=== PATIENT | female | born 1945 | race Caucasian/White ===

== ENCOUNTER 2016-05-27 07:13 | Outpatient (CLI) | payer MEDICARE, OTHER ==
[~2016-05-27] VITALS: Ht 170.2 cm; Wt 49.9 kg
--- NOTE | ~2016-05-27 | HEMODYNAMI ---
PATIENT:REYNALDO NICOLE MEDICAL RECORD: [id number] : 49 LOCATION:[facility] [id number] ADMISSION DATE: 05/27/16 Generatedon:05/28/20169:23 Patient name: REYNALDO NICOLE Patient #: [id number] SSN: DO B: 1945 Date of study: 05/28/2016 Page: Of Hemodynamic Procedure Report Patient Data Patient Demographics Procedure consent was obtained First Name: REYNALDO Gender: Female Last Name: BONNIE : 1945 Patient #: [id number] Age: 70 year(s) Race: Additional ID: [id number] Contact [facility] State: [place] City: [facility] Zip code: [address] Past Medical History History of disease Date Diagnosis Comments Chronic lung disease->COPD Allergies Allergen Reaction Date Comments Reported Penicillins 05/27/2016 Admission Admission Data Admission Date: 05/27/2016 Admission Time: 7:13 Room #: [id number] Height (in.): 67 BSA: 1.57 (m2) Height (cm.): 170.18 BMI: 17.23 (kg/m2) Weight (lbs.): 110 Weight (kg.): 49.9 Current Diagnosis Diagnosis Description Stable angina Lab Results Lab Result Date: 05/27/2016 Lab Result Time: 0:00 Biochemistry Name Units Result Min Max BUN mg/dl 16 --(---*)-- 7 18 Creatinine mg/dl 0.8 --(-*--)-- 0.6 1.3 CBC Name Units Result Min Max Hemoglobin g/dl 11.6 *-(----)-- 13.5 17.5 Procedure Procedure Types Cath Procedure PCI Procedure Coronary Stent Initial Miscellaneous Procedures Moderate Sedation up to 15 minutes Procedure Description Procedure Date Procedure Date: 05/28/2016 Procedure Start Time: 9:14 Procedure End Time: 9:22 Procedure Staff Name Function Filipe Jenkins MD Performing Physician Dom Marsh RT Scrub Amy Ureña RN Nurse Slim Turner RT Monitor Procedure Data Cath Procedure Fluoroscopy Diagnostic fluoroscopy Total fluoroscopy Time: 1.4 time: 1.4 min min Diagnostic fluoroscopy Total fluoroscopy dose: 82 dose: 82 mGy mGy Contrast Material Contrast Material Type Amount (ml) Isovue 300 41 Entry Location Entry Primary Successful Side Size Upsize Upsize Entry Closure Succes sful Closure Location (Fr) 1 (Fr) 2 (Fr) Remarks Device Remarks Femoral Right 6 Fr Exoseal artery Short Estimated blood loss: 10 ml Procedure Complications No complications Procedure Medications Medication Administration Route Dosage Oxygen NC 2 l/min Heparin Flush Bag added to field 2 bags (1000units/500ml NS) Lidocaine 2% added to field 20 Versed I.V. 1 mg Fentanyl I.V. 50 mcg Heparin Bolus I.V. 4000 units Versed I.V. 0.5 mg Hemodynamics Rest BSA: 1.57 (m2) HGB: 11.6 (g/dl) O2 Consumption: Estimated: 159.45 (ml/min) O2 Co nsumption indexed: Estimated:101.56 (ml/min/m) Heart Rate: 94 (bpm) Snapshots Pre Cath Intra NCS Post Cath Vital Signs Time Heart Resp SPO2 etCO2 YL5ogyp NIBP (mmHg) Rhythm Pain Sedation Rate (ipm) (%) (mmHg) (mmHg) Status Level (bpm) 8:49:07 97 16 96 0 0 165/98(136) NSR 0 (11) 10(A) , No pain 8:53:19 93 16 98 0 0 166/103(140) NSR 0 (11) 10(A) , No pain 8:57:29 91 18 98 0 0 165/102(134) NSR 0 (11) 10(A) , No pain 9:01:43 89 16 98 0 0 159/91(131) NSR 0 (11) 10(A) , No pain 9:05:55 87 20 97 0 0 147/86(117) NSR 0 (11) 10(A) , No pain 9:10:07 86 20 97 0 0 139/80(105) NSR 0 (11) 10(A) , No pain 9:14:17 86 23 97 0 0 141/78(106) NSR 0 (11) 9(A) , No pain 9:18:29 84 20 18 0 0 127/74(100) NSR 0 (11) 9(A) , No pain 9:20:36 86 16 95 0 0 134/78(110) NSR 0 (11) 9(A) , No pain Medications Time Medication Route Dose Verified Delivered Reason Notes Effectiveness by by 9:02:58 Oxygen NC 2 Filipe Amy Per physician l/min Alice Ureña RN 9:03:07 Heparin Flush added 2 Filipe Filipe used for Bag to bags Alice Jenkins MD procedure (1000units/500ml field NS) 9:03:16 Lidocaine 2% added 20ml Filipe Filipe used for to vial Alice Jenkins MD procedure field 9:12:05 Versed I.V. 1 mg Filipe Amy for sedation Alice Ureña RN 9:12:11 Fentanyl I.V. 50 Filipe Amy for sedation mcg Alice Ureña RN 9:14:21 Versed I.V. 0.5 Filipe Amy for sedation mg Alice Ureña RN 9:15:45 Heparin Bolus I.V. 4000 Filipe Amy for dose units Alice Ureña RN anticoagulation verified with dr jenkins Procedure Log Time Note 8:30:20 Slim Turner RT(R) sent for patient. Start room use. 8:36:11 Patient Height : 67 cm 8:36:11 Patient Weight : 110 kg 8:44:35 Time tracking: Regular hours 8:44:41 Plan of Care:Hemodynamics will remain stable., Cardiac rhythm will remain stable., Comfort level will be maintained., Respiratory function will remain adequate., Patient/ family verbilizes understanding of procedure., Procedure tolerated without complication., Recovers from procedure without complications.. 8:44:48 Patient received from PCU to CCL 1 Alert and oriented. Tansferred to table in Supine position. 8:44:50 Warm blankets applied, and elissa hugger turned on for patient comfort. 8:44:51 Correct patient and procedure confirmed by team. 8:44:52 Signed procedure consent form obtained from patient. 8:44:53 ECG and BP/O2 sat monitors applied to patient. 8:48:05 Vital chart was started 8:50:44 Baseline sample Acquired. 8:50:53 Rhythm: sinus rhythm 8:50:56 Full Disclosure recording started 8:51:03 H&P Date Dictated: 05/27/2016 Within 30 days and on chart., H&P Addendum completed by physician on day of procedure. (MUST COMPLETE FOR ALL OUTPATIENTS). 8:51:03 Pre-procedure instructions explained to patient. 8:51:04 Pre-op teaching completed and patient verbalized understanding. 8:51:05 Family in waiting room. 8:51:06 Patient NPO since Midnight. 8:57:57 Is the patient allergic to Iodine/contrast media? No. 8:57:59 Is patient on blood thinner?Yes 8:58:04 ACC The patient was administered the following blood thiners within the last 24 hours: ACCPlavix 8:58:07 Patient diabetic? No. 8:58:12 Patient not . Patient is over age 55. 8:58:16 Previous problem with sedation/anesthesia? No ? 8:58:17 Snore? No 8:58:18 Sleep apnea? No 8:58:19 Deviated septum? No 8:58:20 Opens mouth fully? Yes 8:58:21 Sticks out tongue? Yes 8:58:24 Airway obstruction? Yes COPD 8:58:30 Dentures? Yes IN 8:58:39 Pre procedure: right dorsailis pedis pulse 1+ Palpable, but thready & weak; easily obliterated 8:58:41 Patient pain scale 0/10 ?. 8:59:00 IV right forearm D/C'd due to infiltration. 8:59:14 IV started by Amy Ureña RN inleft hand with a 22 gauge IV catheter with 0.9% NaCl at KVO. 8:59:16 Lab results completed and on chart. 8:59:21 Right groin area was prepped with chlora-prep and draped in sterile fashion 8:59:23 Alarms reviewed by R. N. 8:59:23 Sharps counted by scrub and verified by R.N. 8:59:30 Use device set Femoral PCI 8:59:32 Acist Manifold opened to sterile field. 8:59:32 Tegaderm 4 x 4 opened to sterile field. 8:59:34 Acist Syringe opened to sterile field. 8:59:34 Acist Hand Control opened to sterile field. 8:59:34 Bag Decanter opened to sterile field. 8:59:35 Medline Cath Pack opened to sterile field. 8:59:35 Terumo 6Fr Mesa Sheath opened to sterile field. 8:59:36 St Cecil 260cm J .035 wire opened to sterile field. 8:59:36 Merit BasixCompak Inflation Kit opened to sterile field. 8:59:51 Aggarwal Whisper J 300cm 0.014 guide wire opened to sterile field. 8:59:54 22g IV Catheter opened to sterile field. 9:00:09 IV Extension Set opened to sterile field. 9:02:19 Physician paged 9:02:58 Oxygen 2 l/min NC was administered by Amy Ureña RN; Per physician; 9:03:07 Heparin Flush Bag (1000units/500ml NS) 2 bags added to field was administered by Filipe Jenkins MD; used for procedure; 9:03:16 Lidocaine 2% 20ml vial added to field was administered by Filipe Jenkins MD; used for procedure; 9:07:49 Zero performed for pressure channel P1 9:09:17 ACC PCI Site: mLAD has 70% stenosis. 9:09:21 ACC Pre-intervention YASHIRA Flow is 3. 9:11:41 --------ALL STOP TIME OUT------ 9:11:42 Final Timeout: patient, procedure, and site verified with staff and physician. All members of the team are in agreement. 9:11:45 Right groin site verified by team. 9:11:48 Physical assessment completed. ASA score P 2 - A patient with mild systemic disease as per Filipe Jenkins MD. 9:11:52 Sedation plan: IV Moderate Sedation Versed, Fentanyl 9:12:05 Versed 1 mg I.V. was administered by Amy Ureña RN; for sedation; 9:12:11 Fentanyl 50 mcg I.V. was administered by Amy Ureña RN; for sedation; 9:12:41 Cordis 6FR XBLAD 3.5 guide catheter opened to sterile field. 9:13:59 Procedure started. 9:14:02 Local anesthetic to right femoral artery with Lidocaine 2% by Filipe Jenkins MD.INITIAL ACCESS ONLY 9:14:21 Versed 0.5 mg I.V. was administered by Amy Ureña RN; for sedation; 9:14:42 A 6 Fr Short sheath was inserted into the Right Femoral artery 9:14:59 6 Fr XBLAD 3.5 guide catheter was inserted over the wire 9:15:45 Heparin Bolus 4000 units I.V. was administered by Amy Ureña RN; for anticoagulation; dose verified with dr jenkins 9:16:15 Whisper wire advanced. 9:16:29 Wire advanced across lesion. 9:17:48 Inflation Number: 1 A MilePointtronic Integrity 4.0 X 15 stent was prepped and advanced across the Mid LAD. The stent was deployed at 11 ROGELIO for 0:10 (min:sec). 9:18:39 ACC Post-intervention YASHIRA Flow is 3. 9:18:40 Stent catheter was removed intact over wire. 9:18:41 Wire removed. 9:18:42 Guide catheter removed. 9:19:24 Cordis 6Fr Exoseal opened to sterile field. 9:19:34 Sheath removed intact; hemostasis achieved with Exoseal to the Right Femoral artery. 9:19:37 Procedure ended.(Physican Out) 9:19:48 Fluoroscopy time 01.40 minutes. 9:19:52 Fluoroscopy dose: 82 mGy 9:19:52 Flurop Dose total: 82 9:19:57 Contrast amount:Isovue 300 41ml. 9:19:59 Sharps counted by scrub and verified by R.N. 9:21:38 Insertion/operative site no bleeding no hematoma. 9:21:42 Post-op/insertion site Right Femoral artery dressed using a 4 x 4 and Tegaderm. 9:21:43 Post Procedure Pulses reassessed and unchanged 9:21:47 Post-procedure physical assessment completed. ASA score P 2 - A patient with mild systemic disease as per Filipe Jenkins MD. 9:21:50 Post procedure rhythm: unchanged. 9:21:55 Estimated blood loss: 10 ml 9:21:58 Post procedure instruction explained to patient.Patient verbalizes understanding. 9:21:58 Patient needs reinforcement of post procedure teaching. 9:22:05 Procedure type changed to Cath procedure, PCI procedure, Coronary Stent Initial, Miscellaneous Procedures, Moderate Sedation up to 15 minutes 9:22:09 Procedure and supply charges have been captured, reviewed, submitted and are correct. 9:22:13 Procedure Complication : No complications 9:22:40 Vital chart was stopped 9:22:41 See physician's report for complete and final results. 9:22:43 Report given to PCU. 9:22:49 Patient transfered to PCU with Bed. 9:22:51 Procedure ended. 9:22:51 Full Disclosure recording stopped 9:22:55 End room use (Document Last) Intervention Summary Intervention Notes Time ActionType Lesion and Equipment Action# Pressure Duration Attributes Used 9:17:48 Place stent Mid LAD Medtronic 1 11 00:10 Integrity 4.0 X 15 stent Device Usage Item Name Manufacture Quantity Catalog Hospital Part Current Minimal Lot# / Number Charge Number Stock Stock Serial# Code Acist Acist 1 [id number] [id number] 527156 [id number] 5 Manifold Medical Systems Inc Tegaderm 4 3M 1 [id number] 480497 735545 890347 5 x 4 Acist Acist 1 01218 746635 028019 321235 20 Syringe Medical Systems Seismotech Acist Hand Acist 1 35915 541102 412161 333895 5 Control Medical Systems Inc Bag Microtek 1 2002S 330311 72469 562634 5 DecCentrify Medical Inc. Medline Cardinal 1 [id number] 428932 31730 514482 5 Cath Pack Health Terumo 6Fr Terumo 1 [id number] 502675 383286 324251 [address] [facility] 1 086318 532943 095305 277620 30 260cm J .035 wire Merit Merit 1 [id number] 263260 055974 370119 15 BasixCompak Medical Inflation Kit Aggarwal Aggarwal 1 [id number] 398799 322335 592297 5 Whisper J Vascular 300cm 0.014 guide wire 22g IV B. Mejia 1 [id number] 115836 034783 405777 5 Catheter IV Hospira 1 57933-42 736777 24894 886557 5 Extension Set Cordis 6FR Cardinal 1 [id number] 406354 584547 090847 10 XBLAD 3.5 Health guide catheter Medtronic Medtronic 1 [id number] 941281 868891 3 [id number] Integrity 4.0 X 15 stent Cordis 6Fr Cardinal 1 EX600 078885 270221 704991 10 RFinity Signature Audit Stephenson Stage Time Signature Unsigned Intra-Procedure 05/28/2016 Slim Turner 9:23:15 AM RT(R) Signatures Monitor : Slim Turner RT Signature : Date : Time : [address] [id number] [place] [address]
--- NOTE | ~2016-05-27 | HEMODYNAMI ---
PATIENT:REYNALDO NICOLE MEDICAL RECORD: [id number] : 49 LOCATION:[facility] ADMISSION DATE: 05/27/16 Generatedon:05/27/201610:15 Patient name: REYNALDO NICOLE Patient #: [id number] SSN: B: 1945 Date of study: 05/27/2016 Page: Of Hemodynamic Procedure Report Patient Data Patient Demographics Procedure consent was obtained First Name: REYNALDO Gender: Female Last Name: BONNIE : 1945 Patient #: [id number] Age: 70 year(s) Race: Additional ID: [id number] Contact details Address: [address] [place] [address] State: [place] City: [facility] Zip code[place] [address] Past Medical History History of disease Date Diagnosis Comments Chronic lung disease->COPD Allergies Allergen Reaction Date Comments Reported Penicillins 05/27/2016 Admission Admission Data Admission Date: 05/27/2016 Admission Time: 7:13 Height (in.): 67 BSA: 1.57 (m2) Height (cm.): 170.18 BMI: 17.23 (kg/m2) Weight (lbs.): 110 Weight (kg.): 49.9 Current Diagnosis Diagnosis Description Stable angina Lab Results Lab Result Date: 05/27/2016 Lab Result Time: 0:00 Biochemistry Name Units Result Min Max BUN mg/dl 16 --(---*)-- 7 18 Creatinine mg/dl 0.8 --(-*--)-- 0.6 1.3 CBC Name Units Result Min Max Hemoglobin g/dl 11.6 *-(----)-- 13.5 17.5 Procedure Procedure Types Cath Procedure Diagnostic Procedure [facility] w/Coronaries FFR/IVUS Intra-Coronary IVUS Initial PCI Procedure Coronary Stent Initial Miscellaneous Procedures Moderate Sedation up to 30 minutes Procedure Description Procedure Date Procedure Date: 05/27/2016 Procedure Start Time: 9:54 Procedure End Time: 10:14 Procedure Staff Name Function Filipe Jenkins MD Performing Physician Slim ULLOA Scrub Amy Ureña RN Nurse Dom Marsh RT Monitor Procedure Data Cath Procedure Fluoroscopy Diagnostic fluoroscopy Total fluoroscopy Time: 5.6 time: 5.6 min min Diagnostic fluoroscopy Total fluoroscopy dose: 303 dose: 303 mGy mGy Contrast Material Contrast Material Type Amount (ml) Isovue 300 105 Entry Location Entry Primary Successful Side Size Upsize Upsize Entry Closure Hilliard ccessful Closure Location (Fr) 1 (Fr) 2 (Fr) Remarks Device Remarks Radial Right 6 Fr Mechanical artery Short Compression Procedure Complications No complications Procedure Medications Medication Administration Route Dosage Oxygen NC 3 l/min Heparin Flush Bag added to field 2 bags (1000units/500ml NS) Lidocaine 2% added to field 20 Radial Cocktail added to field 1 syringe (Verapomil 2mg/Nitro 400mcg/Heparin 1500units) Versed I.V. 0.5 mg Fentanyl I.V. 25 mcg Oxygen 6 l/min Lopressor I.V. 5 mg Versed I.V. 0.5 mg Fentanyl I.V. 25 mcg Radial Cocktail I.A. 1 syringe (Verapomil 2mg/Nitro 400mcg/Heparin 1500units) Heparin Bolus I.V. 4000 units Lopressor I.V. 5 mg Oxygen NC 4 l/min Hemodynamics Rest BSA: 1.57 (m2) HGB: 11.6 (g/dl) O2 Consumption: Estimated: 197.51 (ml/min) O2 Co nsumption indexed: Estimated:125.8 (ml/min/m) Heart Rate: 158 (bpm) Snapshots Pre Cath Intra NCS Post Cath Vital Signs Time Heart Resp SPO2 etCO2 HB0nxio NIBP (mmHg) Rhythm Pain Sedatio n Rate (ipm) (%) (mmHg) (mmHg) Status Level (bpm) 9:39:11 109 24 95 0 0 204/190(194) ST 0 (11) 10(A) , No pain 9:44:10 115 30 [address] 0 (11) 10(A) , No pain 9:44:16 114 30 94 0 0 186/130(147) ST 0 (11) 10(A) , No pain 9:49:15 114 33 [address] 0 (11) 10(A) , No pain 9:50:39 118 [address] 0 (11) 10(A) Exceeded , No pain 9:52:11 115 43 88 0 0 182/163(172) ST 0 (11) 10(A) , No pain 9:57:10 152 35 [address] 0 (11) 10(A) , No pain 9:57:45 116 30 95 0 0 197/159(165) ST 0 (11) 10(A) , No pain 10:02:01 84 20 98 0 0 137/85(108) ST 0 (11) 10(A) , No pain 10:06:09 80 20 98 0 0 133/81(106) ST 0 (11) 10(A) , No pain 10:10:17 75 20 99 0 0 125/78(102) ST 0 (11) 10(A) , No pain 10:13:27 76 24 97 0 0 128/77(108) ST 0 (11) 10(A) , No pain Medications Time Medication Route Dose Verified Delivered Reason Note s Effectiveness by by 9:40:33 Oxygen NC 3 l/min Filipe Amy Per physician pt a rrived to Alice Ureña RN phlebotomist lab assistant with noted increase work of breathing, increased respiration rate, and anxiety. pt was placed in upright position (semi fowlers) on phlebotomist lab assistant table and oxygen applied. pt educated to breath slow deep breaths through her nose. pt remains anxious. 9:41:59 Heparin Flush added 2 bags Filipe Dent used for Bag to Alice Jenkins MD procedure (1000units/500ml field NS) 9:42:10 Lidocaine 2% added 20ml Filipecamelia Dent used for to vial Alice Jenkins MD procedure field 9:42:22 Radial Cocktail added 1 Filipe Filipe used for (Verapomil to syringe Alice Jenkins MD procedure 2mg/Nitro field 400mcg/Heparin 1500units) 9:48:17 Oxygen simple 6 l/min Filipe Amy Per physician pt c ontinues mask Alice Ureña RN to have same respiratory symptoms 9:49:02 Versed I.V. 0.5 mg Filipe Amy for sedation Alice Ureña RN 9:49:08 Fentanyl I.V. 25 mcg Filipe Amy for sedation Alice Ureña RN 9:54:05 Fentanyl I.V. 25 mcg Filipe Amy for sedation Alice Ureña RN 9:54:54 Versed I.V. 0.5 mg Filipe Amy for sedation Alice Ureña RN 9:56:00 Radial Cocktail I.A. 1 Filipe Dent for (Verapomil syringe Alice Jenkins MD vasodilation 2mg/Nitro 400mcg/Heparin 1500units) 9:57:40 Lopressor I.V. 5 mg Filipe Ricoecca Per physician Alice Ureña RN 10:00:26 Heparin Bolus I.V. 4000 Filipe Amy for dose verified units Alice Ureña RN anticoagulation with dr jenkins 10:05:00 Lopressor I.V. 5 mg Filipe Espinozaca Per physician Alice Ureña RN 10:10:59 Oxygen NC 4 l/min Filipe Espinozaca Per physician pt h as Alice Ureña RN decreased work of breathing and decresed anxiety. pt hr is 76, bp is normotensive. pt reports feeling that she can catch her breath. Procedure Log Time Note 9:15:07 Dom Marsh RT(R) sent for patient. Start room use. 9:21:02 ACC Patient presents with Stable Angina CCS Anginal Class 2--Slight limitation of ordinary activity. 9:21:04 Diagnostic Cath status Elective 9:21:08 Time tracking: Regular hours 9:21:13 Plan of Care:Hemodynamics will remain stable., Cardiac rhythm will remain stable., Comfort level will be maintained., Respiratory function will remain adequate., Patient/ family verbilizes understanding of procedure., Procedure tolerated without complication., Recovers from procedure without complications.. 9:21:37 Patient allergic to Penicillins 9:32:06 Patient received from Pre/Post Procedure Room to CCL 1 Alert and oriented. Tansferred to table in Supine position. 9:32:07 Warm blankets applied, and elissa hugger turned on for patient comfort. 9:32:08 Correct patient and procedure confirmed by team. 9:32:09 Signed procedure consent form obtained from patient. 9:32:10 ECG and BP/O2 sat monitors applied to patient. 9:37:15 Vital chart was started 9:40:33 Oxygen 3 l/min NC was administered by Amy Ureña RN; Per physician; pt arrived to phlebotomist lab assistant with noted increase work of breathing, increased respiration rate, and anxiety. pt was placed in upright position (semi fowlers) on phlebotomist lab assistant table and oxygen applied. pt educated to breath slow deep breaths through her nose. pt remains anxious. 9:41:59 Heparin Flush Bag (1000units/500ml NS) 2 bags added to field was administered by Filipe Jenkins MD; used for procedure; 9:42:10 Lidocaine 2% 20ml vial added to field was administered by Filipe Jenkins MD; used for procedure; 9:42:22 Radial Cocktail (Verapomil 2mg/Nitro 400mcg/Heparin 1500units) 1 syringe added to field was administered by Filipe Jeknins MD; used for procedure; 9:45:17 Baseline sample Acquired. 9:45:23 Rhythm: sinus rhythm 9:45:25 Full Disclosure recording started 9:45:37 H&P Date Dictated: 05/07/2016 Within 30 days and on chart., H&P Addendum completed by physician on day of procedure. (MUST COMPLETE FOR ALL OUTPATIENTS). 9:45:38 Pre-procedure instructions explained to patient. 9:45:39 Pre-op teaching completed and patient verbalized understanding. 9:45:41 Family in waiting room. 9:45:43 Patient NPO since Midnight. 9:45:49 Is the patient allergic to Iodine/contrast media? No. 9:45:51 Is patient on blood thinner?Yes 9:45:54 ACC The patient was administered the following blood thiners within the last 24 hours: ACCPlavix 9:45:56 Patient diabetic? No. 9:45:58 ----Pre-sedation anethsthesia assessment.---- 9:46:00 Previous problem with sedation/anesthesia? No ? 9:46:02 Snore? No 9:46:04 Sleep apnea? No 9:46:06 Deviated septum? No 9:46:07 Opens mouth fully? Yes 9:46:09 Sticks out tongue? Yes 9:46:14 Airway obstruction? Yes COPD 9:46:19 Dentures? Yes IN TIGHT 9:46:23 Pre procedure: right dorsailis pedis pulse 1+ Palpable, but thready & weak; easily obliterated 9:46:27 Modified Ion's test Ulnar < 7 seconds 9:46:32 Patient pain scale 0/10 ?. 9:46:37 IV patent on arrival in right forearm with 0.9% NaCl at 10ml/hr. 9:46:56 Lab Result : BUN 16 mg/dl 9:46:56 Lab Result : Creatinine 0.8 mg/dl 9:46:56 Lab Result : Hemoglobin 11.6 g/dl 9:46:59 Lab results completed and on chart. 9:47:02 Right Radial & Right Groin area was prepped with chlora-prep and draped in sterile fashion 9:47:03 Alarms reviewed by R. N. 9:47:03 Sharps counted by scrub and verified by R.N. 9:47:04 --------ALL STOP TIME OUT------ 9:47:04 Final Timeout: patient, procedure, and site verified with staff and physician. All members of the team are in agreement. 9:47:06 Right Radial & Right Groin site verified by team. 9:47:09 Physical assessment completed. ASA score P 2 - A patient with mild systemic disease as per Filipe Jenkins MD. 9:47:13 Sedation plan: IV Moderate Sedation Versed, Fentanyl 9:47:25 Use device set Radial Dx 9:47:26 Acist Syringe opened to sterile field. 9:47:26 Medline Cath Pack opened to sterile field. 9:47:27 Bag Decanter opened to sterile field. 9:47:27 Terumo 6Fr Slender Glidesheath opened to sterile field. 9:47:27 St Cecil 260cm J .035 wire opened to sterile field. 9:47:28 Acist Hand Control opened to sterile field. 9:47:28 Acist Manifold opened to sterile field. 9:47:29 Tegaderm 4 x 4 opened to sterile field. 9:47:29 MBrace Wrist Support opened to sterile field. 9:47:56 Patient Height : 67 cm 9:48:00 Patient Weight : 110 kg 9:48:04 Current Diagnosis : Stable angina 9:48:17 Oxygen 6 l/min simple mask was administered by Amy Ureña RN; Per physician; pt continues to have same respiratory symptoms 9:49:02 Versed 0.5 mg I.V. was administered by Amy Ureña RN; for sedation; 9:49:08 Fentanyl 25 mcg I.V. was administered by Amy Ureña RN; for sedation; 9:54:05 Fentanyl 25 mcg I.V. was administered by Amy Ureña RN; for sedation; 9:54:37 Procedure started. 9:54:49 Local anesthetic to right radial artery with Lidocaine 2% by Filipe Jenkins MD.INITIAL ACCESS ONLY 9:54:54 Versed 0.5 mg I.V. was administered by Amy Ureña RN; for sedation; 9:55:23 A 6 Fr Short sheath was inserted into the Right Radial artery 9:56:00 Radial Cocktail (Verapomil 2mg/Nitro 400mcg/Heparin 1500units) 1 syringe I.A. was administered by Filipe Jenkins MD; for vasodilation; 9:56:43 LV angiography performed. 9:56:45 LV gram done using FORREST 9:56:49 Injector settings: Ml/sec: 7, Volume: 15, 9:57:19 EF : 50 % 9:57:28 LCA angiography performed. 9:57:40 Lopressor 5 mg I.V. was administered by Amy Ureña RN; Per physician; 9:58:38 RCA angiography performed. 9:58:41 Catheter removed. 9:59:05 Terumo 6Fr Franklin Sheath opened to sterile field. 9:59:06 Campbell Akutan Eagleye IVUS Catheter opened to sterile field. 9:59:06 Aggarwal Whisper J 300cm 0.014 guide wire opened to sterile field. 9:59:06 Cordis 6FR XBLAD 3.5 guide catheter opened to sterile field. 9:59:07 Adlogix BasixCompak Inflation Kit opened to sterile field. 9:59:20 6 Fr XBLAD 3.5 guide catheter was inserted over the wire 9:59:26 WHISPER wire advanced. 9:59:29 FFR/IVUS 9:59:30 IVUS catheter advanced over wire. 9:59:31 IVUS pass to LAD lesion performed. 9:59:43 Zero performed for pressure channel P1 9:59:45 Zero performed for pressure channel P1 10:00:26 Heparin Bolus 4000 units I.V. was administered by Amy Ureña RN; for anticoagulation; dose verified with dr jenkins 10:03:33 IVUS catheter removed over wire. 10:04:02 Wire removed. 10:04:13 ACC PCI Site: [facility] has 99% stenosis. 10:04:16 ACC Pre-intervention YASHIRA Flow is 3. 10:04:22 WHISPER wire advanced. 10:05:00 Lopressor 5 mg I.V. was administered by Amy Ureña RN; Per physician; 10:07:11 Inflation number: 1 A Navut Hanson 3.0 X 15 balloon was prepped and advanced across the Mid CX, then inflated to 7 ROGELIO for 0:11 (min:sec). 10:07:29 Balloon removed over the wire. 10:09:08 Inflation Number: 2 A Security Scorecardtronic Integrity 3.0 X 15 stent was prepped and advanced across the Mid CX. The stent was deployed at 11 ROGELIO for 0:15 (min:sec). 10:09:11 Stent catheter was removed intact over wire. 10:09:12 Wire removed. 10:09:13 Guide catheter removed. 10:09:15 ACC Post-intervention YASHIRA Flow is 3. 10:09:21 Contrast amount:Isovue 300 105ml. 10:10:20 Sheath removed intact; hemostasis achieved with Mechanical Compression to the Right Radial artery. 10:10:22 Procedure ended.(Physican Out) 10:10:59 Oxygen 4 l/min NC was administered by Amy Ureña RN; Per physician; pt has decreased work of breathing and decresed anxiety. pt hr is 76, bp is normotensive. pt reports feeling that she can catch her breath. 10:11:50 Fluoroscopy time 05.60 minutes. 10:12:29 Fluoroscopy dose: 303 mGy 10:12:29 Flurop Dose total: 303 10:12:31 Sharps counted by scrub and verified by R.N. 10:12:33 TR band inflated with 10cc of air. 10:13:09 Procedure type changed to Cath procedure, Diagnostic procedure, LHC, LHC w/Coronaries, FFR/IVUS, Intra-Coronary IVUS Initial, PCI procedure, Coronary Stent Initial, Miscellaneous Procedures, Moderate Sedation up to 30 minutes 10:13:38 Terumo TR Band Standard opened to sterile field. 10:14:03 Post right radial artery:stable 10:14:05 Post Procedure Pulses reassessed and unchanged 10:14:07 Post procedure rhythm: sinus rhythm 10:14:08 Post procedure instruction explained to patient.Patient verbalizes understanding. 10:14:09 Procedure and supply charges have been captured, reviewed, submitted and are correct. 10:14:13 Procedure Complication : No complications 10:14:30 Vital chart was stopped 10:14:30 See physician's report for complete and final results. 10:14:36 Report given to PCU. 10:14:39 Patient transfered to PCU with Bed. 10:14:41 Procedure ended. 10:14:41 Full Disclosure recording stopped 10:14:43 End room use (Document Last) Intervention Summary Intervention Notes Time ActionType Lesion and Equipment Action# Pressure Duration Attributes Used 10:07:11 Inflate Mid CX Depauw 1 7 00:11 balloon Sci Hanson 3.0 X 15 balloon 10:09:08 Place stent Mid CX Medtronic 2 11 00:15 Integrity 3.0 X 15 stent Device Usage Item Name Manufacture Quantity Catalog Number Hospital Part Current Mini mal Lot# / Charge Number Stock Stock Serial# Code Acist Acist 1 23190 [id number] 082154 513657 20 Syringe Medical Systems Inc Medline Cardinal 1 [id number] 044039 13475 183270 5 Cath Pack Health Bag Microtek 1 2002S 928858 92630 654133 5 EvaluAgent Medical Inc. Terumo 6Fr Terumo 1 [id number] 773331 121694 216451 [address] [facility] Cecil 1 [id number] 168699 433689 559452 30 260cm J .035 wire Acist Hand Acist 1 26904 246640 403250 698753 5 Control Medical Systems Inc Acist Acist 1 88462 906247 644920 907875 5 Manifold Medical Systems Inc Tegaderm 4 3M 1 1626W 212173 595159 966528 5 x 4 MBrace Advanced 1 140-0250-00 414418 83965 817676 5 Wrist Vascular Support Dynamics Terumo 6Fr Terumo 1 [id number] 467281 550647 882053 40 Franklin Sheath Campbell Campbell 1 [id number] 742273 168644 752242 8 Akutan Eagleye IVUS Catheter Aggarwal Aggarwal 1 [id number] 834284 937038 582989 5 Whisper J Vascular 300cm 0.014 guide wire Cordis 6FR Cardinal 1 [id number] 104048 624769 956801 10 XBLAD 3.5 Health guide catheter [facility] 1 [id number] 821134 005909 122230 15 BasixCompak Medical Inflation Kit Depauw Sci Depauw 1 [id number] 929409 146307 209088 1 [id number] Ewireless 3.0 X 15 balloon Medtronic Medtronic 1 [id number] 499656 850445 288056 4 [id number] Integrity 3.0 X 15 stent Terumo TR Terumo 1 [id number] 293662 184755 923926 40 Band Standard Signature Audit [place] Stage Time Signature Unsigned Intra-Procedure 05/27/2016 Dom Marsh 10:15:33 AM RT(R) Signatures Monitor : Dom Marsh RT Signature : Date : Time : [id number] [place] [address]
[2016-05-27 07:57] VITALS: BP 174/87; BMI 17.2
[2016-05-27] MEDS ORDERED: MULTIPLE VITAMI1 TA1 PO (07:59)
[2016-05-27] MEDS ORDERED: ALDACTONE25 MG PO (07:59)
[2016-05-27] MEDS ORDERED: PRINIVIL20 MG PO (07:59)
[2016-05-27] MEDS ORDERED: CRANBERRY 400 M1 TA1 PO (08:04)
[2016-05-27] MEDS ORDERED: FISH OIL 1,0001 CA1 PO (08:04)
[2016-05-27] MEDS ORDERED: ALEVE220 MG PO (08:05)
[2016-05-27] MEDS ORDERED: PLAVIX75 MG PO (08:05)
[2016-05-27] MEDS ORDERED: BAYER CHEWABLE81 MG PO (08:06)
[2016-05-27] MEDS ORDERED: IBUPROFEN400 MG PO (08:06)
[2016-05-27 08:30] LABS: HEMATOCRIT 34.5 % (36.0-48.0); HEMOGLOBIN 11.6 g/dL (12-16); MCH 31.2 pg (26.0-34.0); MCHC 33.6 g/dL (31.0-37.0); MCV 92.7 fL (80.0-100.0); MEAN PLATELET VOLUME 9.3 fL (7.4-10.4); NEUTROPHILS 68.4 % (40-80); PLATELET COUNT 272 10x3/uL (130-400); RBC 3.72 10x6/uL (4.00-5.40); RDW 14.6 % (11.5-14.5); WBC 6.6 10x3/uL (4.8-10.8)
[2016-05-27 08:42] LABS: CALC OSMOLALITY 288 mosm/kg (275-300); CALCIUM 8.5 mg/dL (8.5-10.1); CARBON DIOXIDE 25.3 mmol/L (21.0-32.0); CHLORIDE - SERUM 108 mmol/L (98-107); CREATININE - SERUM 0.8 mg/dL (0.6-1.3); GLUCOSE 123 mg/dL (74-106); POTASSIUM - SERUM 3.3 mmol/L (3.5-5.1); SODIUM 144 mmol/L (136-145); UREA NITROGEN 16 mg/dL (7-18); eGFR NON AFRICAN AMERICAN 75 mL/min (90-120)
--- NOTE | 2016-05-27 10:38 | NUR ---
TRANSFER FROM [employer] [facility]. VS WNL. RIGHT WRIST STABLE WITH TR BAND INTACT. CALL LIGHT IN REACH. WILL CONT. PLAN OF CARE.
[2016-05-27 10:39] VITALS: BP 143/83; BMI 17.2
[2016-05-27 11:06] VITALS: BP 143/83
--- NOTE | 2016-05-27 14:33 | NUR ---
TR BAND DCD WITHOUT BLEEDING OR HEMATOMA NOTED.
[2016-05-27 16:12] VITALS: BP 140/81
[2016-05-27 19:00] VITALS: BP 72/56
--- NOTE | 2016-05-28 06:51 | NUR ---
MEDITECH DOWN THROUGHOUT THE SHIFT, SEE NARRATIVE PAPER CHARTING.
--- NOTE | 2016-05-28 08:50 | NUR ---
PRE-OPS GIVEN. TO MANAGER ASSISTED LIVING BY BED.
--- NOTE | 2016-05-28 09:45 | NUR ---
BACK FROM MANAGER LONG TERM CARE. VS WNL. RIGHT GROIN STABLE WITHOUT BLEEDING OR HEMATOMA NOTED. WILL MONITOR.
[2016-05-28 10:45] VITALS: Ht 170.2 cm; Wt 49.9 kg
[2016-05-28] MEDS ORDERED: XANAX0.25 MG PO (11:20)
--- NOTE | 2016-05-28 13:25 | NUR ---
BED REST UP. GROIN STABLE.
--- NOTE | 2016-05-28 14:07 | NUR ---
02 SAT 95% ON ROOM AIR AFTER EXERTION. IV AND TELEMETRY DCD. DC PLANS GIVEN. UNDERSTANDING VOICED.
--- NOTE | 2016-05-28 14:16 | NUR ---
02 SAT 95% ON 02 2L NC. O2 SAT 84% ON RA AMBULATIN 250 FEET. 02 SAT 90% RA AT REST. AND BACK UP TO 95% ON 02 2L NC.
--- NOTE | 2016-05-28 14:26 | NUR ---
TRAY DRIER NOTIFIED OF SATS. RT CONSULT ORDERED.
--- NOTE | 2016-05-28 14:43 | NUR ---
02 SAT 90% RA AMBULATING WITH RT. 500 FEET.
--- NOTE | 2016-05-28 14:52 | NUR ---
DID NOT QUALIFY FOR HOME 02. ESCORTED TO CAR BY W/C.
--- NOTE | 2016-05-30 10:19 | DS ---
PATIENT:REYNALDO HORNER :49 MEDICAL RECORD: [id number] DISCHARGE SUMMARY ADMISSION DATE: 05/27/16 DISCHARGE DATE: 05/28/16 DIAGNOSES: 1. Unstable angina. 2. Coronary artery disease. 3. Percutaneous transluminal coronary angioplasty stent of left anterior descending and left circumflex this admission. 4. Hypertension. HISTORY OF PRESENT ILLNESS: Mrs. Horner presents with unstable anginal symptomatology, found to have significant disease of the LAD and left circumflex with a very small nondominant right, underwent successful PTCA stent of both vessels. She had an uneventful postop course. She was discharged home with the addition of aspirin and Plavix to her medical regimen. She will follow up with [facility] in 1 month. TRANSINT:[id number] Voice Confirmation ID: [id number] DOCUMENT ID: [id number] MANNY LOPEZ MD at 1019 CC: [id number] DICTATION DATE: 05/28/16920 TRAUMA COUNSELLOR: 05/28/16 2357 [facility] CLI 05/28/16 [id number] [place] [address]
--- NOTE | 2016-05-30 10:19 | OP ---
PATIENT NAME: REYNALDO NICOLE MEDICAL RECORD: [id number] :49 LOCATION:D.CAT ADMISSION DATE: SURGEON: MANNY LOPEZ MD DATE OF OPERATION: 05/28/2016 PROCEDURES: 1. PTCA stent LAD. 2. Selective coronary angiography. INDICATIONS: Angina and coronary artery disease. DESCRIPTION OF PROCEDURE: After informed consent was obtained and after a detailed explanation of risks, benefits as well as alternative therapies, the patient elected to proceed with angiogram and angioplasty. The right femoral area was prepped and draped in normal sterile fashion. The right femoral artery was cannulated via modified Seldinger technique with placement of 6-Lao sheath. All catheters exchanged through this sheath. FINDINGS: The left anterior descending has greater than 75% stenosis confirmed by intravascular ultrasound on cardiac catheterization. ____ a 4.0 x 15 mm Integrity stent. Result was 0% residual stenosis. OVERALL IMPRESSION: Successful percutaneous transluminal coronary angioplasty stent of the left anterior descending going from greater than 75% initial stenosis to 0% residual. TRANSINT:[id number] Voice Confirmation ID: [id number] DOCUMENT ID: [id number] MANNY LOPEZ MD at 1019 CC: [id number] DICTATION DATE: 05/28/16 0922 PRESS HAND SUPERVISOR: 05/28/16 1749 [facility] CLI 05/28/[address] [address]
--- NOTE | 2016-05-30 10:19 | OP ---
PATIENT NAME: REYNALDO NICOLE MEDICAL RECORD: [id number] :[birth year] LOCATION:D.CAT ADMISSION DATE: SURGEON: MANNY LOPEZ MD DATE OF OPERATION: 05/27/2016 PROCEDURES: 1. PTCA stent left circumflex. 2. Intravascular ultrasound of the LAD. 3. Left heart catheterization. 4. Selective coronary angiography. 5. Left ventriculogram. INDICATIONS: Angina and coronary artery disease. DESCRIPTION OF PROCEDURE: After informed consent was obtained and after detailed explanation of risks, benefits, as well as alternative therapies, the patient elected to proceed with angiogram and angioplasty. The right radial area was prepped and draped in normal sterile fashion. Right radial artery was cannulated via modified Seldinger technique with placement of 6-German sheath. All catheters exchanged through this sheath. FINDINGS: The left ventriculogram was performed in standard 30-degree FORREST view, reveals good cardiac wall motion throughout all segments. Overall ejection fraction 50% to 55%. SELECTIVE CORONARY ANGIOGRAPHY: 1. Left main is with no significant angiographic disease. 2. Left anterior descending has a 75% stenosis proximally confirmed by intravascular ultrasound. 3. Left circumflex has a 99% stenosis in the mid vessel. This is a large dominant vessel. 4. Right coronary is small, nondominant, with no significant disease throughout. PTCA STENT OF THE LEFT CIRCUMFLEX: The stent used was a 3.0 x 15 mm Integrity. Result was 0% residual stenosis. OVERALL IMPRESSION: Successful percutaneous transluminal coronary angioplasty stent of the left circumflex going from 99% initial stenosis to 0% residual. PLAN: PTCA stent of the LAD in the near future. TRANSINT:[id number] Voice Confirmation ID: [id number] DOCUMENT ID: [id number] MANNY LOPEZ MD at 1019 CC: [id number] DICTATION DATE: 05/27/16 1013 DESIGN TECHNOLOGY PROFESSOR: 05/27/16 1755 [facility] CLI 05/28/[address] [address]
== END 2016-05-28 16:04 | disposition home or self-care (01) ==
LOC: D.CATH 07:13 → D.M2 07:13 → D.CATH 09:30 → D.M2 10:22 → D.CATH 05-28 16:04
PROVIDERS: Internal Medicine Interventional Cardiology
DX: I25.110 Atherosclerotic heart disease of native coronary artery with unstable angina pectoris (principal); R94.30 Abnormal result of cardiovascular function study, unspecified; J44.9 Chronic obstructive pulmonary disease, unspecified; R07.9 Chest pain, unspecified; F17.200 Nicotine dependence, unspecified, uncomplicated

== ENCOUNTER → 2016-08-11 13:37 | Outpatient (CLI) | payer MEDICARE, OTHER ==
[2016-05-28 10:45] VITALS: BMI 17.2
[~2016-08-11 13:37] MED LIST: ALDACTONE25 MG PO; ALEVE220 MG PO; BAYER CHEWABLE81 MG PO; CRANBERRY 400 M1 TA1 PO; FISH OIL 1,0001 CA1 PO; IBUPROFEN400 MG PO; MULTIPLE VITAMI1 TA1 PO; PLAVIX75 MG PO; PRINIVIL20 MG PO; XANAX0.25 MG PO
== END | disposition home or self-care (01) ==
LOC: D.RT 13:37
DX: J44.9 Chronic obstructive pulmonary disease, unspecified (principal)